=== PATIENT | male | born 1950 | race Caucasian/White ===

== ENCOUNTER 2021-09-26 12:42 | Outpatient (CLI) | payer OTHER, SELFPAY | END 2021-09-26 12:43 | disposition home or self-care (01) | LOC: ANHAUDIO 12:44 | PROVIDERS: PCP Student in an Organized Health Care Education/Training Program; Visit Provider Student in an Organized Health Care Education/Training Program | DX: H91.93 Unspecified hearing loss, bilateral (principal) | CPT/HCPCS: 99199 ==

== ENCOUNTER 2021-09-28 10:54 | Outpatient (RCR) | payer OTHER, SELFPAY | END 2021-11-09 14:11 | disposition home or self-care (01) | LOC: ANHCPREHAB 10:54 | PROVIDERS: PCP Student in an Organized Health Care Education/Training Program | DX: J44.9 Chronic obstructive pulmonary disease, unspecified (principal) | CPT/HCPCS: 94625 ==

== ENCOUNTER 2021-11-01 14:28 | Outpatient (CLI) | payer OTHER, SELFPAY | END 2021-11-01 14:29 | disposition home or self-care (01) | LOC: ANHAUDIO 14:30 | PROVIDERS: PCP Student in an Organized Health Care Education/Training Program; Visit Provider Student in an Organized Health Care Education/Training Program | DX: H91.90 Unspecified hearing loss, unspecified ear (principal) | CPT/HCPCS: 99199 ==

== ENCOUNTER 2023-10-29 14:28 | Emergency (ER) | payer OTHER, SELFPAY ==
--- NOTE | ~2023-10-29 | XR_ITS ---
XR humerus RT Ordering provider: MELODY Hinojosa History: . diffuse rt humerus pain s/p injury a few days ago . Comparison: None. FINDINGS: BONES: No acute fracture or dislocation. 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 JOINT SPACES: Osteoarthritic changes of the acromioclavicular joint. SOFT TISSUES: Normal. IMPRESSION: No acute osseous abnormality right humerus. Reviewed, dictated and finalized at location A.
[2023-10-29 14:46] VITALS: BP 122/85; PULSE 82; RESP 16; TEMP 37.5; O2SAT 84
--- NOTE | 2023-10-29 15:16 | ED.GENADULT ---
HPI - General Adult General Chief complaint: Extremity Injury, Upper Stated complaint: right shoulder,wrist /right side chest hurts Time Seen by Provider: 10/29/23 15:03 Source: patient, family () and RN notes reviewed Mode of arrival: ambulatory Limitations: no limitations History of Present Illness HPI narrative: The patient presents today complaining of right elbow, upper arm, and shoulder pain. Patient typically will get a little dizzy when he switches over from his CPAP to portable oxygen in the mornings. Two days ago when he switched over and felt dizzy, he tripped in to door frame and struck his right elbow. Since that time the pain in the elbow has radiated up to the humerus and shoulder area causing pain. He currently rates his pain 9/10 and has been taking Tylenol with little relief. Patient's history of COPD, pacemaker/defibrillator placement, Parkinson's. Typically, patient is on 3 L of oxygen at home via nasal cannula and Pulse ox is in low 90s. Out of his house, he uses 4L and reports pulse Ox is usually in mid 80s. Upon arrival it was 84%. Related Data Home Medications Medication Instructions Recorded Confirmed acetaminophen 650 mg See Rx Instructions .Route .COMPLEX 09/28/21 10/29/23 tablet,extended release atorvastatin 80 mg tablet 80 mg PO HS 09/28/21 10/29/23 carvedilol 6.25 mg tablet 6.25 mg PO BID 09/28/21 10/29/23 cholecalciferol (vitamin D3) 50 50 mcg PO DAILY 09/28/21 10/29/23 mcg (2,000 unit) tablet (Vitamin D3) clonazepam 1 mg tablet 1 mg PO HS 09/28/21 10/29/23 fluticasone fur. 100 mcg-umeclid 1 inh inhalation DAILY 09/28/21 10/29/23 62.5 mcg-vilant 25 mcg inhalat.powder (Trelegy Ellipta) ipratropium 0.5 mg-albuterol 3 mg See Rx Instructions .Route 09/28/21 10/29/23 (2.5 mg base)/3 mL nebulization .COMPLEX PRN Bronchodilation soln mecobalamin (vitamin B12) 1,000 1,000 mcg PO DAILY 09/28/21 10/29/23 mcg chewable tablet metformin 1,000 mg tablet 1,000 mg PO BID 09/28/21 10/29/23 oxygen-air delivery systems 09/28/21 09/28/21 tamsulosin 0.4 mg capsule 0.4 mg PO HS 09/28/21 10/29/23 torsemide 10 mg tablet 10 mg PO QAM 09/28/21 10/29/23 albuterol sulfate 90 mcg/actuation See Rx Instructions .Route .COMPLEX 10/29/23 10/29/23 breath activated powder inhaler ([employer]) allopurinol 100 mg tablet 100 mg PO DAILY 10/29/23 10/29/23 aripiprazole 5 mg tablet 5 mg PO DAILY 10/29/23 10/29/23 aspirin 81 mg tablet 81 mg PO DAILY 10/29/23 10/29/23 azithromycin 500 mg tablet See Rx Instructions .Route .COMPLEX 10/29/23 10/29/23 budesonide 160 mcg-glycopyr 9 See Rx Instructions .Route .COMPLEX 10/29/23 10/29/23 mcg-formot 4.8 mcg/actuation HFA inhaler ([employer]) donepezil 5 mg disintegrating 5 mg PO DAILY 10/29/23 10/29/23 tablet duloxetine 60 mg capsule,delayed 60 mg PO DAILY 10/29/23 10/29/23 release pregabalin 75 mg capsule 75 mg PO DAILY 10/29/23 10/29/23 Allergies Allergy/AdvReac Type Severity Reaction Status Date / Time No Known Allergies Allergy Verified 10/29/23 14:58 Review of Systems Review of Systems: CONSTITUTIONAL: Denies body aches, fever, chills, or sweats. EYES: Denies visual changes, redness, or discharge. ENT: Denies rhinorrhea, congestion, sore throat, or otalgia. CARDIOVASCULAR: Denies chest pain, palpitations, or edema. RESPIRATORY: Denies cough or dyspnea. GASTROINTESTINAL: Denies abdominal pain, nausea, vomiting, or diarrhea. GENITOURINARY: Denies dysuria or hematuria. SKIN: Denies rash, itching, or wounds. MUSCULOSKELETAL: Pain to right elbow, upper arm, and shoulder area. NEUROLOGIC: Denies headache, numbness, tingling, or weakness. PSYCH: Denies depression or anxiety. [facility] Past Medical History Medical History (Updated 10/29/23 @ 15:51 by Laura Welch, COUNTER WAITRESS/WAITER, ) COPD (chronic obstructive pulmonary disease) Diabetes Parkinson disease Presence of combination internal cardiac defibrillator (ICD) and pacemaker
--- NOTE | 2023-10-29 16:23 | PC.NURSE ---
Pt. is on 3 L O2 at home with sats at 90% at baseline. Per he and his when he is out of the house on portable O2 he is on 4 L with sats at 83 - 84%. Pt. verbalized that he was comfortable on 4 L with his sat 84% during his visit at the [facility]. Because he was depleting his portable tank and had another one in the car for the ride home the pt. was placed on the [facility] portable tank at 4 L until discharge home.
== END 2023-10-29 16:02 | disposition home or self-care (01) ==
PROVIDERS: Emergency Provider Nurse Practitioner; PCP Student in an Organized Health Care Education/Training Program
DX: S46.911A Strain of unspecified muscle, fascia and tendon at shoulder and upper arm level, right arm, initial encounter (principal); S50.01XA Contusion of right elbow, initial encounter; W01.198A Fall on same level from slipping, tripping and stumbling with subsequent striking against other object, initial encounter; Z87.891 Personal history of nicotine dependence; J44.9 Chronic obstructive pulmonary disease, unspecified; E11.9 Type 2 diabetes mellitus without complications; G20.A1 Parkinson's disease without dyskinesia, without mention of fluctuations; Z95.810 Presence of automatic (implantable) cardiac defibrillator
CPT/HCPCS: 73060; 99213; G0463